=== PATIENT | female | born 1990 | race American Indian/Alaskan Native ===

== ENCOUNTER 2020-02-12 14:10 | Emergency (ER) | payer MEDICAID ==
[2020-02-12 14:14] VITALS: BP 108/78
--- NOTE | 2020-02-12 14:20 | Event Note ---
ED Screening Note ED Screening Note: LMP started today trying to get preg since July periods irregular also white dc no fever or chills no dysuria concern for STI pmh PID PSH k stones 2 c sec cig home preg neg ambulatory and non toxic on exam This initial assessment/diagnostic orders/clinical plan/treatment(s) is/are subj ect to change based on patients health status, clinical progression and re- assessment by fellow clinical providers in the ED. Further treatment and workup at subsequent clinical providers discretion. Patient/guardian urged not to elope from the ED as their condition may be serious if not clinically assessed and managed. Initial orders include: MSE WITH NO LIFE THREATENING EMERGENCY TO REGISTRATION Elects to stay
[2020-02-12 16:08] LABS: HCG Qualitative,Urine Negative (Negative)
[2020-02-12 16:09] LABS: Bilirubin,Urine NEG (Negative); Blood,Urine NEG (Negative); Color,Urine Yellow (Yellow); Mucus,Urine FEW /HPF; Protein,Urine <15 mg/dL mg/dL (Negative); Urobilinogen,Urine < 2.0 mg/dL (<2.0); WBC,Urine < 1.0 /HPF (0.0-6.0)
--- NOTE | 2020-02-12 16:12 | Emergency Department Report ---
ED Abdominal Pain HPI - General Chief Complaint: Abdominal Pain Stated Complaint: ABD PAIN,DISCHARGE AND IRREGULAR PERIOD Time Seen by Provider: 02/12/20 14:16 Source: patient Mode of arrival: Ambulatory Limitations: No Limitations - History of Present Illness Initial Comments: Is a pleasant 29-year-old female presents the emergency department chief com plaint of lower abdominal pain, regular menstrual cycles and diarrhea with some vaginal discharge over the past 2 months. Patient reports past medical history of PID and kidney stones and states this feels similar to when she had PID. She does report she has been having unprotected sex and is concerned about a possible exposure to an STD. She denies any associated fever, chills, night sweats, headache, dizziness, blurry vision, nausea, vomiting, chest pain, shortness of breath. She denies any known past medical history other than PID and previous UTIs. She is not on any medications currently does not have any allergies to medications. She reports the pain is cramping and describes it as a 4-10 in severity. She denies any radiating pain. She points to the lower abdomen as the location. There are no aggravating or alleviating factors. - Related Data Previous Rx's Medication Instructions Recorded Last Taken Type Naproxen [Naprosyn TAB] 500 mg PO BID #20 tablet 02/12/20 Unknown Rx Allergies Allergy/AdvReac Type Severity Reaction Status Date / Time No Known Allergies Allergy Unverified 02/12/20 14:13 ED Review of Systems ROS: Stated complaint: ABD PAIN,DISCHARGE AND IRREGULAR PERIOD Other details as noted in HPI Comment: All other systems reviewed and negative Constitutional: denies: chills, fever Eyes: denies: eye pain, eye discharge, vision change ENT: denies: ear pain, throat pain Respiratory: denies: cough, shortness of breath, wheezing Cardiovascular: denies: chest pain, palpitations Endocrine: no symptoms reported Gastrointestinal: as per HPI, abdominal pain, diarrhea. denies: nausea Genitourinary: as per HPI, discharge, abnormal menses. denies: urgency, dysuria Musculoskeletal: denies: back pain, joint swelling, arthralgia Skin: denies: rash, lesions Neurological: denies: headache, weakness, paresthesias Psychiatric: denies: anxiety, depression Hematological/Lymphatic: denies: easy bleeding, easy bruising ED Past Medical Hx - Past Medical History Previous Medical History?: Yes Additional medical history: PID, UTI - Surgical History Past Surgical History?: Yes Additional Surgical History: KIDNEY STONE REMOVAL, - Social History Smoking Status: Current Every Day Smoker Substance Use Type: None - Medications Home Medications: Home Medications Medication Instructions Recorded Confirmed Last Taken Type Naproxen [Naprosyn TAB] 500 mg PO BID #20 tablet 02/12/20 Unknown Rx ED Physical Exam - General Limitations: No Limitations General appearance: alert, in no apparent distress - Head Head exam: Present: atraumatic, normocephalic - Eye Eye exam: Present: normal appearance, PERRL, EOMI Pupils: Present: normal accommodation - ENT ENT exam: Present: normal exam, normal orophraynx, mucous membranes moist - Neck Neck exam: Present: normal inspection, full ROM. Absent: tenderness, meningismus - Respiratory Respiratory exam: Present: normal lung sounds bilaterally. Absent: respiratory distress, wheezes, rales, rhonchi, stridor - Cardiovascular Cardiovascular Exam: Present: regular rate, normal rhythm. Absent: systolic murmur, diastolic murmur, rubs, gallop - GI/Abdominal GI/Abdominal exam: Present: soft, normal bowel sounds. Absent: distended, tenderness, guarding, rebound, rigid - External exam: Present: normal external exam. Absent: erythema, swelling, lesions, lacerations Speculum exam: Present: normal speculum exam, vaginal bleeding, other (Patient currently on menstrual cycle, normal-appearing cervix, chaperoned by DOMINGA Judge) - Extremities Exam Extremities exam: Present: normal inspection, full ROM, normal capillary refill. Absent: tenderness - Back Exam Back exam: Present: normal inspection, full ROM. Absent: tenderness, CVA te nderness (R), CVA tenderness (L) - Neurological Exam Neurological exam: Present: alert, oriented X3, normal gait - Psychiatric Psychiatric exam: Present: normal affect, normal mood - Skin Skin exam: Present: warm, dry, intact, normal color. Absent: rash ED Course Vital Signs 02/12/20 14:13 Temperature 98.9 F Pulse Rate 110 H Respiratory 18 Rate Blood Pressure 108/78 O2 Sat by Pulse 98 Oximetry ED Medical Decision Making - Lab Data Lab Results 02/12/20 Range/Units 16:02 Urine Color Yellow (Yellow) Urine Turbidity Clear (Clear) Urine pH 6.0 (5.0-7.0) Ur Specific [place] 1.012 (1.003-1.030) Urine Protein <15 mg/dl (Negative) mg/dL Urine Glucose (UA) Neg (Negative) mg/dL Urine Ketones Neg (Negative) mg/dL Urine Blood Neg (Negative) Urine Nitrite Neg (Negative) Ur Reducing Substances Not Reportable Urine Bilirubin Neg (Negative) Urine Ictotest Not Reportable Urine Urobilinogen < 2.0 (<2.0) mg/dL Ur Leukocyte Esterase Neg (Negative) Urine WBC (Auto) < 1.0 (0.0-6.0) /HPF Urine RBC (Auto) 2.0 (0.0-6.0) /HPF U Epithel Cells (Auto) < 1.0 (0-13.0) /HPF Urine Mucus Few /HPF Urine HCG, Qual Negative (Negative) - Medical Decision Making Patient is hemodynamically stable in no acute distress. Pelvic exam was unremarkable with no cervical motion tenderness making PID unlikely. Patient had a normal wet prep with no trichomonas, yeast or clue cells. She was treated empirically with Rocephin and azithromycin to cover for gonorrhea and chlamydia. Urine was unremarkable and test was negative ruling out ectopic. Abdominal exam was relatively benign. She was instructed to follow-up with [facility] about her irregular menses. She also educated about STD follow-up including follow-up with the health department or with [facility] the further test for other potential STD exposures including HIV, syphilis, hepatitis etc. She was instructed to discuss with her partner about also being treated and wait at least a week after both parties have been treated prior to engaging in sexual intercourse again. She was educated on proper use of condoms. She verbalized understand the diagnosis, treatment plan and follow-up instructions and all of her questions were answered. - Differential Diagnosis PID, TOA, ovarian cyst Critical care attestation.: If time is entered above; I have spent that time in minutes in the direct care o f this critically ill patient, excluding procedure time. ED Disposition Clinical Impression: Pelvic pain, Menometrorrhagia Disposition: TO HOME OR SELFCARE Is pt being admited?: No Condition: Stable Instructions: Abdominal Pain (ED) Prescriptions: Naproxen [Naprosyn TAB] 500 mg PO BID #20 tablet Referrals: [facility], [Primary Care Provider] - 3-5 Days [facility] [Provider Group] - 3-5 Days SHEREEN ALCANTARA MD [Staff Physician] - 3-5 Days Forms: Work/School Release Form(ED) Time of Disposition: 18:30
[2020-02-12] MEDS ORDERED: AZITHROMYCIN 250 MG TAB PO ONE (16:40)
[2020-02-12] MEDS ORDERED: LIDOCAINE-MPF (1%) 10 MG/1 ML VIAL 5 ML INFILTRATI ONE (16:40)
== END 2020-02-12 18:34 | disposition home or self-care (01) ==
LOC: ED 14:10
DX: R10.2 Pelvic and perineal pain (principal); N92.1 Excessive and frequent menstruation with irregular cycle; F17.200 Nicotine dependence, unspecified, uncomplicated; Z98.890 Other specified postprocedural states; Z79.899 Other long term (current) drug therapy
CPT/HCPCS: 81001; 81025; 87210; 87591; 96372; 99284; J0696

== ENCOUNTER 2020-10-13 19:10 | Emergency (ER) | payer MEDICAID ==
[2020-10-13] MEDS ORDERED: SODIUM CHLORIDE 0.9% 1000 ML 1,000 ML IV ONE ×3 (20:02→22:54)
[2020-10-13] MEDS ORDERED: MORPHINE 4 MG/1 ML INJ IV ONE ×2 (20:02→22:38)
[2020-10-13] MEDS ORDERED: FAMOTIDINE 20 MG/2 ML INJ IV ONE ×2 (20:02→22:38)
[2020-10-13] MEDS ORDERED: ONDANSETRON 4 MG/2 ML INJ IV ONE ×2 (20:02→22:38)
--- NOTE | 2020-10-13 20:08 | Event Note ---
ED Screening Note Date of service: 10/13/20 Time: 20:04 ED Screening Note: Patient is a 29 yo AA female with no past medical history who presents to the ED with c/o acute onset persistent severe diffuse abdominal pain with intractable nausea and vomiting for the last 2 days. Patient states that she is unable to keep anything down in the last 24 hours. Patient states that last meal was at a restaurant 2 days ago. Patient also states that her LMP was 1 wek ago. Patient denies dyspnea, fever, chills, diarrhea, chest pain, dizziness, cough, vaginal bleeding, dysuria or urinary urgency and frequency, vision changes or syncope. This initial assessment/diagnostic orders/clinical plan/treatment(s) is/are subject to change based on patients health status, clinical progression and re- assessment by fellow clinical providers in the ED. Further treatment and workup at subsequent clinical providers discretion. Patient/guardian urged not to elope from the ED as their condition may be serious if not clinically assessed and managed. Initial orders include: CBC, CMP, UA, HCG Serum; Lipase, Abdo-pelvis CT scan w/contrast
[2020-10-13 20:36] LABS: Basophils % (Auto) 0.1 % (0.0-1.8); Eosinophils % (Auto) 0.1 % (0.0-4.3); Hematocrit 47.9 % (30.3-42.9); Hemoglobin 15.8 gm/dl (10.1-14.3); Lymphocytes % (Auto) 9.4 % (13.4-35.0); Mean Corpuscular HGB Conc 33 % (30-34); Mean Corpuscular Volume 96 fl (79-97); Monocytes # (Auto) 0.7 K/mm3 (0.0-0.8); Monocytes % (Auto) 6.7 % (0.0-7.3); Platelet Count 344 K/mm3 (140-440); Red Blood Count 4.98 M/mm3 (3.65-5.03); Red Cell Distribution Width 14.8 % (13.2-15.2)
[2020-10-13 20:42] LABS: Alanine Aminotransferase 13 units/L (7-56); Albumin 4.5 g/dL (3.9-5); Blood Urea Nitrogen 6 mg/dL (7-17); Calcium 9.2 mg/dL (8.4-10.2); Hemolysis Index 9
[2020-10-13 20:45] LABS: BUN/Creatinine Ratio 10
--- NOTE | 2020-10-13 22:19 | Cat Scan Report ---
CT ABDOMEN AND PELVIS WITH CONTRAST HISTORY: Abdominal pain, N/V. COMPARISON: None. TECHNIQUE: CT images of the abdomen and pelvis were obtained following administration of intravenous contrast. All CT scans at this location are performed using CT dose reduction for ALARA by means of automated exposure control. CONTRAST: 100 ml of intravenous contrast administered. FINDINGS: Lungs/bones: Lung bases are clear Abdomen/pelvis: Small hypodensity in right hepatic lobe too small characterize. There is mild fatty infiltration of the liver. Spleen, adrenal glands, pancreas, gallbladder and upper GI tract appear no rmal. The bowel loops are fluid-filled both within small and large bowel. The terminal ileum is unrem arkable. The appendix is very difficult to visualize however no inflammatory changes seen in the visu alized portion measuring 5 mm. The descending colon wall is mildly thickened however there is incompl ete distention. No focal inflammatory changes seen. The uterus is slightly prominent with fluid in th e endometrium mild increased vascularity is seen within the pelvis with vascular congestion. Aorta ap pears normal. No significant free fluid in the pelvis. IMPRESSION: 1. No evidence for bowel obstruction. There may be some mild inflammation/thickening of the descendin g colon extending into the rectum however there is incomplete distention. Colitis cannot be excluded however examination is slightly limited without oral contrast. No focal area of inflammation or free fluid. 2. The appendix is not well seen throughout its entirety. No CT evidence for appendicitis. 3. Fatty infiltration of the liver. 4. Uterus is slightly prominent with endometrial fluid. Mild vascular congestion is seen within the p maddie. Signer Name: Damián Duran MD Signed: 10/13/2020 10:15 PM Workstation Name: [id number]
--- NOTE | 2020-10-13 22:40 | Emergency Department Report ---
ED Abdominal Pain HPI - General Chief Complaint: Abdominal Pain Stated Complaint: STOMACH PAIN Time Seen by Provider: 10/13/20 22:26 Source: patient Mode of arrival: Ambulatory Limitations: No Limitations - History of Present Illness Initial Comments: 29-year-old female no past medical surgical history presents to the hospital complaining of generalized abdominal cramping greatest in the right lower quadrant, nausea, vomiting with p.o. intolerance x2 days. Pain is 10/10 in intensity, constant, worse with palpation and movement. No alleviating factors reported patient has not had a bowel movement in in 2 days that symptoms have began however, she has had very little p.o. intake during this time as well. She denies fever, recent travel, dysuria, hematochezia, hematemesis, melena, or loss of sense of taste or smell. Patient denies vaginal discharge. She is sexually active, does not use comments, and has 1 sexual partner Severity scale (0 -10): 10 - Related Data Previous Rx's Medication Instructions Recorded Last Taken Type Naproxen [Naprosyn TAB] 500 mg PO BID #20 tablet 02/12/20 Unknown Rx Doxycycline Monohydrate 100 mg PO BID #28 capsule 10/14/20 Unknown Rx [Doxycycline Monohydrate CAP] Famotidine [Pepcid] 20 mg PO BID #20 tablet 10/14/20 Unknown Rx Fluconazole (Nf) [Diflucan TAB] 150 mg PO ONCE #1 tablet 10/14/20 Unknown Rx Ibuprofen [Motrin] 800 mg PO Q8HR PRN #20 tablet 10/14/20 Unknown Rx Ondansetron [Zofran Odt] 4 mg PO Q8HR PRN #20 tab.rapdis 10/14/20 Unknown Rx metroNIDAZOLE [Flagyl] 500 mg PO Q12HR #14 tab 10/14/20 Unknown Rx oxyCODONE /ACETAMINOPHEN [Percocet 1 tab PO Q6HR PRN #14 tablet 10/14/20 Unknown Rx 5/325] Allergies Allergy/AdvReac Type Severity Reaction Status Date / Time No Known Allergies Allergy Unverified 02/12/20 14:13 ED Review of Systems ROS: Stated complaint: STOMACH PAIN Other details as noted in HPI Comment: All other systems reviewed and negative ED Past Medical Hx - Past Medical History Additional medical history: PID, UTI - Surgical History Additional Surgical History: KIDNEY STONE REMOVAL, - Social History Smoking Status: Never Smoker Substance Use Type: None - Medications Home Medications: Home Medications Medication Instructions Recorded Confirmed Last Taken Type Naproxen [Naprosyn TAB] 500 mg PO BID #20 tablet 02/12/20 Unknown Rx Doxycycline Monohydrate 100 mg PO BID #28 capsule 10/14/20 Unknown Rx [Doxycycline Monohydrate CAP] Famotidine [Pepcid] 20 mg PO BID #20 tablet 10/14/20 Unknown Rx Fluconazole (Nf) [Diflucan TAB] 150 mg PO ONCE #1 tablet 10/14/20 Unknown Rx Ibuprofen [Motrin] 800 mg PO Q8HR PRN #20 tablet 10/14/20 Unknown Rx Ondansetron [Zofran Odt] 4 mg PO Q8HR PRN #20 tab.rapdis 10/14/20 Unknown Rx metroNIDAZOLE [Flagyl] 500 mg PO Q12HR #14 tab 10/14/20 Unknown Rx oxyCODONE /ACETAMINOPHEN [Percocet 1 tab PO Q6HR PRN #14 tablet 10/14/20 Unknown Rx 5/325] ED Physical Exam - General Limitations: No Limitations - Other Other exam information: General: Moderate distress secondary to pain, current up with position Head: Atraumatic Eyes: normal appearance ENT: Moist mucous membranes Neck: Normal appearance, no midline tenderness Chest: Clear to auscultation bilaterally CV: Regular rate and rhythm Abdomen: Soft, normal bowel sounds, generalized tenderness greatest in the right lower quadrant, nondistended, no rebound or guarding : No external lesions, greenish malodorous watery discharge in vaginal vault with CMT and right adnexal tenderness. Back: Normal inspection Extremity: Normal inspection, full range of motion Neuro: Alert O x 3, no facial asymmetry, speech clear, no gross motor sensory deficit Psych: Appropriate behavior Skin: No rash ED Course Vital Signs 10/13/20 10/14/20 19:53 02:16 Temperature 98.5 F Pulse Rate 75 72 Respiratory 20 15 Rate Blood Pressure 120/71 [Left] Blood Pressure 136/91 [Right] O2 Sat by Pulse 99 100 Oximetry - Reevaluation(s) Reevaluation #1: 10/16/20 10:17 I attempted a follow up call to check on patient at this time. Unfortunately her phone number is not in service. GC and chlamydia test still pending at this time 10/16/20 19:42 labs reviewed and pt was + for gonorrhea. Unfortunately she did not provide a working phone number for contact. During her initial visit I did inform patient that she can go to medical records to obtain the results of her STD test and advised her to abstain and for her partner is tested and treated as well. Patient receive appropriate antibiotic treatment for gonorrhea. ED Medical Decision Making - Lab Data Result diagrams: 10/13/20 20:07 10/13/20 20:07 Lab Results 10/13/20 10/13/20 10/13/20 Range/Units 20:07 20:07 20:07 WBC 10.8 (4.5-11.0) K/mm3 RBC 4.98 (3.65-5.03) M/mm3 Hgb 15.8 H (10.1-14.3) gm/dl Hct 47.9 H (30.3-42.9) % MCV 96 (79-97) fl MCH 32 (28-32) pg MCHC 33 (30-34) % RDW 14.8 (13.2-15.2) % Plt Count 344 (140-440) K/mm3 Lymph % (Auto) 9.4 L (13.4-35.0) % [place] % (Auto) 6.7 (0.0-7.3) % Eos % (Auto) 0.1 (0.0-4.3) % Baso % (Auto) 0.1 (0.0-1.8) % Lymph # (Auto) 1.0 L (1.2-5.4) K/mm3 [place] # (Auto) 0.7 (0.0-0.8) K/mm3 Eos # (Auto) 0.0 (0.0-0.4) K/mm3 Baso # (Auto) 0.0 (0.0-0.1) K/mm3 Seg Neutrophils % 83.7 H (40.0-70.0) % Seg Neutrophils # 9.0 H (1.8-7.7) K/mm3 Sodium 137 (137-145) mmol/L Potassium 3.8 (3.6-5.0) mmol/L Chloride 103.9 (98-107) mmol/L Carbon Dioxide 21 L (22-30) mmol/L Anion Gap 16 mmol/L BUN 6 L (7-17) mg/dL Creatinine 0.6 (0.6-1.2) mg/dL Estimated GFR > 60 ml/min BUN/Creatinine Ratio 10 % Glucose 106 H (65-100) mg/dL Calcium 9.2 (8.4-10.2) mg/dL Total Bilirubin 0.80 (0.1-1.2) mg/dL AST 14 (5-40) units/L ALT 13 (7-56) units/L Alkaline Phosphatase 74 (35-129) units/L Total Protein 7.3 (6.3-8.2) g/dL Albumin 4.5 (3.9-5) g/dL Albumin/Globulin Ratio 1.6 % Lipase 9 L (13-60) units/L HCG, Qual Negative (Negative) Urine Color (Yellow) Urine Turbidity (Clear) Urine pH (5.0-7.0) Ur Specific [place] (1.003-1.030) Urine Protein (Negative) mg/dL Urine Glucose (UA) (Negative) mg/dL Urine Ketones (Negative) mg/dL Urine Blood (Negative) Urine Nitrite (Negative) Urine Bilirubin (Negative) Urine Urobilinogen (<2.0) mg/dL Ur Leukocyte Esterase (Negative) Urine WBC (Auto) (0.0-6.0) /HPF Urine RBC (Auto) (0.0-6.0) /HPF U Epithel Cells (Auto) (0-13.0) /HPF Urine Mucus /HPF 10/14/20 Range/Units 00:20 WBC (4.5-11.0) K/mm3 RBC (3.65-5.03) M/mm3 Hgb (10.1-14.3) gm/dl Hct (30.3-42.9) % MCV (79-97) fl MCH (28-32) pg MCHC (30-34) % RDW (13.2-15.2) % Plt Count (140-440) K/mm3 Lymph % (Auto) (13.4-35.0) % [place] % (Auto) (0.0-7.3) % Eos % (Auto) (0.0-4.3) % Baso % (Auto) (0.0-1.8) % Lymph # (Auto) (1.2-5.4) K/mm3 [place] # (Auto) (0.0-0.8) K/mm3 Eos # (Auto) (0.0-0.4) K/mm3 Baso # (Auto) (0.0-0.1) K/mm3 Seg Neutrophils % (40.0-70.0) % Seg Neutrophils # (1.8-7.7) K/mm3 Sodium (137-145) mmol/L Potassium (3.6-5.0) mmol/L Chloride (98-107) mmol/L Carbon Dioxide (22-30) mmol/L Anion Gap mmol/L BUN (7-17) mg/dL Creatinine (0.6-1.2) mg/dL Estimated GFR ml/min BUN/Creatinine Ratio % Glucose (65-100) mg/dL Calcium (8.4-10.2) mg/dL Total Bilirubin (0.1-1.2) mg/dL AST (5-40) units/L ALT (7-56) units/L Alkaline Phosphatase (35-129) units/L Total Protein (6.3-8.2) g/dL Albumin (3.9-5) g/dL Albumin/Globulin Ratio % Lipase (13-60) units/L HCG, Qual (Negative) Urine Color Yellow (Yellow) Urine Turbidity Clear (Clear) Urine pH 6.0 (5.0-7.0) Ur Specific [place] 1.012 (1.003-1.030) Urine Protein 30 mg/dl (Negative) mg/dL Urine Glucose (UA) Neg (Negative) mg/dL Urine Ketones 20 (Negative) mg/dL Urine Blood Neg (Negative) Urine Nitrite Neg (Negative) Urine Bilirubin Neg (Negative) Urine Urobilinogen 2.0 (<2.0) mg/dL Ur Leukocyte Esterase Neg (Negative) Urine WBC (Auto) 2.0 (0.0-6.0) /HPF Urine RBC (Auto) 5.0 (0.0-6.0) /HPF U Epithel Cells (Auto) 1.0 (0-13.0) /HPF Urine Mucus Few /HPF - Radiology Data Radiology results: report reviewed CT ABDOMEN AND PELVIS WITH CONTRAST HISTORY: Abdominal pain, N/V. COMPARISON: None. TECHNIQUE: CT images of the abdomen and pelvis were obtained following admin istration of intravenous contrast. All CT scans at this location are performed using CT dose reduction for ALARA by means of automated exposure control. CONTRAST: 100 ml of intravenous contrast administered. FINDINGS: Lungs/bones: Lung bases are clear Abdomen/pelvis: Small hypodensity in right hepatic lobe too small characterize. There is mild fatty infiltration of the liver. Spleen, adrenal glands, pancreas, gallbladder and upper GI tract appear normal. The bowel loops are fluid-filled both within small and large bowel. The terminal ileum is unremarkable. The appendix is very difficult to visualize however no inflammatory changes seen in the visualized portion measuring 5 mm. The descending colon wall is mildly thickened however there is incomplete distention. No focal inflammatory changes seen. The uterus is slightly prominent with fluid in the endometrium mild increased vascularity is seen within the pelvis with vascular congestion. Aorta appears normal. No significant free fluid in the pelvis. IMPRESSION: 1. No evidence for bowel obstruction. There may be some mild inflammation/thickening of the descending colon extending into the rectum however there is incomplete distention. Colitis cannot be excluded however examination is slightly limited without oral contrast. No focal area of inflammation or free fluid. 2. The appendix is not well seen throughout its entirety. No CT evidence for appendicitis. 3. Fatty infiltration of the liver. 4. Uterus is slightly prominent with endometrial fluid. Mild vascular congestion is seen within the pelvis. - Medical Decision Making Patient presents to the hospital with significant abdominal pain particularly lower abdomen and right lower quadrant with nausea vomiting p.o. intolerance. No diarrhea reported. Decreased stool output likely secondary to decreased p.o. intake. CT findings noted. Pelvic exam suggestive of PID/STD pelvic infection + Bacterial vaginosis. Patient received morphine 4 mg of Zofran with minimal improvement in pain and required additional Dilaudid 0.5 mg and Toradol for persistent abdominal pain. Nausea improved with Zofran. Patient treated with IV Rocephin 500 mg and 1 dose of 100 mg p.o. doxycycline and flagyl. Pt d/russell on abx Patient tolerating p.o. intake at time of discharge. Provided Percocet prior to DC for residual pain to aid in sleep tonight. UA negative for infection. Patient also counseled on signs and symptoms of appendicitis and instructed to return if she develops worsening right lower quadrant pain, fever, p.o. intolerance, or fails to improve despite prescribed medication. Ideally close follow-up is recommended Critical Care Time: No Critical care attestation.: If time is entered above; I have spent that time in minutes in the direct care of this critically ill patient, excluding procedure time. ED Disposition Clinical Impression: PID (acute pelvic inflammatory disease), Nausea and vomiting, Bacterial vag inosis, Vaginal yeast infection Disposition: TO HOME OR SELFCARE Is pt being admited?: No Does the pt Need Aspirin: No Condition: Stable Instructions: Nausea and Vomiting, Adult, Pelvic Inflammatory Disease, Bacterial Vaginosis (ED), Abdominal Pain (ED) Additional Instructions: Take the medication as prescribed. Follow-up with your doctor or doctor/clinic provided. Return if symptoms worsen as indicated by your discharge instructions. Prescriptions: Fluconazole (Nf) [Diflucan TAB] 150 mg PO ONCE #1 tablet Doxycycline Monohydrate [Doxycycline Monohydrate CAP] 100 mg PO BID #28 capsule metroNIDAZOLE [Flagyl] 500 mg PO Q12HR #14 tab Ibuprofen [Motrin] 800 mg PO Q8HR PRN #20 tablet PRN Reason: Pain, Moderate (4-6) Famotidine [Pepcid] 20 mg PO BID #20 tablet oxyCODONE /ACETAMINOPHEN [Percocet 5/325] 1 tab PO Q6HR PRN #14 tablet PRN Reason: Pain Ondansetron [Zofran Odt] 4 mg PO Q8HR PRN #20 tab.rapdis PRN Reason: Nausea And Vomiting Referrals: LUCINDA BANKS MD [Staff Physician] - 2-3 Days ([facility] REPAIRER) [facility] [Provider Group] - 2-3 Days [facility] [Primary Care Provider] - 2-3 Days Forms: STI Treatment and Prevention
[2020-10-13] MEDS ORDERED: HYDROmorphone 1 MG/1 ML INJ IV ONE (23:55)
[2020-10-14] MEDS ORDERED: DOXYCYCLINE 100 MG CAP PO ONE (00:31)
[2020-10-14] MEDS ORDERED: KETOROLAC 30 MG/1 ML INJ ONE (00:34)
[2020-10-14] MEDS ORDERED: KETOROLAC 30 MG/1 ML INJ IV ONE (00:35)
[2020-10-14] MEDS ORDERED: metroNIDAZOLE 500 MG TAB PO ONE (01:03)
[2020-10-14 01:13] LABS: Bilirubin,Urine NEG (Negative); Blood,Urine NEG (Negative); Color,Urine Yellow (Yellow); Mucus,Urine FEW /HPF
[2020-10-14] MEDS ORDERED: oxyCODONE /ACETAMINOPHEN 5-325MG TAB PO ONE (01:20)
[2020-10-14 02:17] VITALS: BP 120/71
== END 2020-10-14 02:25 | disposition home or self-care (01) ==
LOC: ED 19:10
DX: N73.9 Female pelvic inflammatory disease, unspecified (principal); N76.0 Acute vaginitis; B37.9 Candidiasis, unspecified; B96.89 Other specified bacterial agents as the cause of diseases classified elsewhere; R11.2 Nausea with vomiting, unspecified; Z98.890 Other specified postprocedural states; Z79.1 Long term (current) use of non-steroidal anti-inflammatories (NSAID); Z79.899 Other long term (current) drug therapy
CPT/HCPCS: 36415; 74177; 80053; 81001; 83690; 84703; 85025; 87210; 87591; 96361; 96365; 96375; 99284; J0696; J1170; J1885; J2270; J2405; J7030; Q9967